=== PATIENT | male | born 1960 | race Two or more races ===

== ENCOUNTER 2025-08-12 23:46 | Emergency (ER) | payer OTHER ==
[~2025-08-12] VITALS: Ht 180.3 cm; Wt 76.7 kg
[2025-08-12] MEDS ORDERED: FARXIGA5 MG PO (23:54)
[2025-08-12] MEDS ORDERED: CARVEDILOL6.25 M1 PO (23:54)
[2025-08-12] MEDS ORDERED: AMLODIPINE-OLM1 EAC2 PO (23:54)
[2025-08-12] MEDS ORDERED: ASPRUZYO SPRIN500 MG PO (23:54)
[2025-08-12] MEDS ORDERED: ISOSORBIDE DINI30 MG PO (23:55)
[2025-08-12] MEDS ORDERED: PEPCID AC20 MG PO (23:55)
[2025-08-12] MEDS ORDERED: PRAVASTATIN SOD20 MG PO (23:55)
[2025-08-12] MEDS ORDERED: CHILDREN'S ASPI81 MG PO (23:56)
[2025-08-12] MEDS ORDERED: BRILINTA90 MG PO (23:56)
[2025-08-12] MEDS ORDERED: EZETIMIBE10 MG PO (23:56)
[2025-08-12] MEDS ORDERED: ENALAPRIL MALE2.5 MG PO (23:57)
== END 2025-08-13 | disposition left against medical advice (07) ==
LOC: ER 23:46
DX: Z53.21 Procedure and treatment not carried out due to patient leaving prior to being seen by health care provider (principal)